=== PATIENT | male | born 1965 | race Caucasian/White ===

== ENCOUNTER 2016-07-23 15:52 | Emergency (ER) | payer OTHER ==
[~2016-07-23 15:52] MED LIST: ANTACID PLUS A355 M1 PO; LORTAB 7.5-5001 TAB PO; MULTI VITAMIN1 EACH PO; NAPROSYN375 MG PO; NAPROXEN PO; NICODERM C1 PATCH .1 TD; NO MEDICATIONS; NO MEDICATIONS PO; PANTOPRAZOLE SO40 MG PO; PHENERGAN PR; PHENERGAN25 MG PO; PRILOSEC20 M1 PO; PROTONIX PO; THIAMINE HCL100 M1 PO; VICODIN 5/1 TAB 5/50 PO; VICODIN 5/500 T1 TAB PO; XANAFLEX; ZANAFLEX PO; ZANAFLEX2 M1 PO; ZANAFLEX2 MG PO; ZANTAC150 MG PO
== END 2016-07-23 15:55 | disposition left against medical advice (07) ==
LOC: CED 15:52
DX: Z53.21 Procedure and treatment not carried out due to patient leaving prior to being seen by health care provider (principal)

== ENCOUNTER 2016-09-13 07:51 | Inpatient (IN) | payer OTHER ==
--- NOTE | ~2016-09-13 | OR ---
Unit #: [id number] #: [id number] Patient: JELANI MARTINEZ [id number] [address] [id number] I MR#: [id number] NAME: JELANI MARTINEZ. ROOM: [facility] Date of Procedure: 09/15/2016 Admission Date: 09/13/2016 Surgeon: Kwesi Larsen M.D. : 1965 Attending Physician: Kwame Flowers M.D. Primary Care Physician: Primary Care Physician No OPERATIVE REPORT PROCEDURE PERFORMED Esophagogastroduodenoscopy with biopsy. INDICATIONS FOR PROCEDURE The patient with persistent epigastric pain, nausea, and vomiting. MEDICATIONS Monitored anesthesia. POSTOPERATIVE FINDINGS 1. Moderate-sized hiatal hernia. 2. Gastritis with erosions. 3. No ulcers. 4. Normal duodenum and distal duodenum. PLAN Continue PPI therapy. The patient is otherwise stable. DESCRIPTION OF PROCEDURE The patient was explained of the procedure, risks, and benefits along with the risks and benefits of anesthesia. He was brought to the endoscopy room. Propofol anesthesia was given. Bite block was placed. The scope was passed down the mouth into the esophagus, stomach, duodenum, and distal duodenum. Findings as described. Biopsy was taken. Gently, I pulled it out of the patient's mouth. He tolerated it well. Dictated by... Lucia Denton/francisco TD: 09/15/2016 20:20 JOB #: [id number] Unit #: [id number] #: [id number] Patient: JELANI MARTINEZ OPERATIVE REPORT Page 1 of 1 X Kwesi Larsen MD X PROCEDURE OPERATIVE NOTE
--- NOTE | ~2016-09-13 | HP ---
Unit #: [id number] #: [id number] Patient: JELANI MARTINEZ [id number] [facility]. [place], [place] [address] [id number] E MR#: [id number] NAME: JELANI MARTINEZ ROOM: Age: 51 Sex: M Admission Date: 09/13/2016 : 1965 Attending Physician: Joshua Templeton M.D. HISTORY AND PHYSICAL REVISED REPORT CHIEF COMPLAINT Nausea, vomiting, and abdominal pain. HPI The patient is a 51-year-old male with past medical history of gastric ulcer, pancreatitis, chronic low back pain, and alcohol abuse who presented to the emergency department for evaluation of the above. The patient state that he was in his usual state of health until the 11 of September when he drank alcohol. He states that since that time, he has had worsening abdominal pain. The pain is in his upper abdomen. He describes it as "pain." There are no exacerbating or alleviating factors. He has had more than 10 bouts of nonbloody emesis within the past 24 hours. He also reports loose stool. He denies any fever. No cough or cold symptoms. No urinary symptoms. In the emergency department, CT of the abdomen and pelvis was done and showed no obstructing calculi. Amylase and lipase are 47 and 34, respectively. White blood cell count 18.4. He was given Zosyn in the emergency department as well as a total of 8 mg of morphine and 8 mg of Zofran. Additionally, he received 1 liter of normal saline bolus. He is being admitted to [facility] for evaluation and further treatment. PAST MEDICAL HISTORY 1. 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 He was seen in consultation by Dr. Larsen. It does not appear that he had endoscopy. 2. History of gastric ulcer. 3. Chronic low back pain. 4. History of pancreatitis. PAST SURGICAL HISTORY 1. EGD. 2. Right ankle surgery. SOCIAL HISTORY The patient smokes 1/2 pack of cigarettes daily. He has a history of heavy alcohol use. History of last drink was on September 11 and consisted of several beers. 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 Unit #: [id number] #: [id number] Patient: JELANI MARTINEZ FAMILY HISTORY Notable for his dad having cirrhosis. ALLERGIES No known allergies. MEDICATIONS Home medications include Phenergan and Protonix. Home medications will need to be reviewed and verified. REVIEW OF SYSTEMS A complete review of systems is negative, except as indicated in the HPI. DIAGNOSTIC STUDIES IMAGING: CT of the abdomen and pelvis shows no obstructing calculi. Right upper quadrant ultrasound is pending at the time of this dictation. LABORATORY: Comprehensive metabolic panel notable for potassium of 3.3, and chloride is 96. Amylase and lipase are 47 and 34, respectively. Complete blood count notable for white blood cell count of 18.4 and hemoglobin and hematocrit 15.8 and 50.1, respectively. Urinalysis notable for trace leukocyte esterase and 2+ ketones. Lactic acid is 1. PHYSICAL EXAMINATION VITAL SIGNS: Temperature is 97.9, pulse 90, respirations 18, blood pressure 167/105, and oxygen saturation is 95% on room air. GENERAL: The patient is a male who is ambulating about the emergency department. HEENT: The head is atraumatic. Mucous membranes are dry. NECK: Supple. Trachea is midline. CARDIOVASCULAR: Regular rate and rhythm. LUNGS: Clear to auscultation bilaterally with no increased work of breathing. ABDOMEN: Soft. He is tender to palpation in the epigastric area. Bowel sounds are present in all four quadrants. EXTREMITIES: Nontender with no pedal edema. NEUROLOGIC: The patient is awake and alert. He follows commands. PSYCH: Mood and affect are normal. The patient is cooperative. SKIN: Skin of examined areas is warm and dry. ASSESSMENT The patient is a 51-year-old male with: 1. Abdominal pain. 2. Hypokalemia. 3. Leukocytosis. The patient received Zosyn in the emergency department. 4. History of gastric ulcer. 5. History of alcohol-induced pancreatitis. 6. Chronic low back pain. 7. Alcohol abuse with last drink being on September 11. 8. Tobacco abuse. PLAN 1. Admit for observation to intermediate level. 2. NPO and will advance to clear liquids as tolerated. 3. P.R.N. morphine. 4. P.R.N. Zofran. 5. Follow up results of right upper quadrant ultrasound. Unit #: [id number] #: [id number] Patient: JELANI MARTINEZ 6. Consult Dr. Larsen regarding abdominal pain. 7. Check EKG and cardiac enzymes. 8. Check potassium/ magnesium protocol. 9. Blood cultures x2. 10. Zosyn IV pending further workup. 11. Stool studies including ova and parasites, C. diff., and culture and sensitivity. 12. Alcohol withdrawal protocol. 13. Urine tox screen. 14. Repeat labs in the morning including amylase and lipase. 15. SCDs for DVT prophylaxis. 16. Protonix. 17. Additional workup and consultants bases on above. Dictated by Lucia Rm TD: 09/13/2016 13:22 JOB #: [id number] HISTORY AND PHYSICAL Page 1 of 1 X Iveth Lara MD X HISTORY AND PHYSICAL
--- NOTE | ~2016-09-13 | EKG ---
PATIENT: JELANI MARTINEZ UNIT #: [id number] Ventricular Rate: 78 BPM Atrial Rate: 78 BPM P-R Interval: 146 ms QRS Duration: 80 ms Q-T Interval: 372 ms QTC Calculation(Bezet): 424 ms P Galva: 77 degrees Calculated R Galva: 57 degrees Calculated T Galva: 62 degrees Diagnosis Line: Normal sinus rhythm with sinus arrhythmia Diagnosis Line: Normal ECG Diagnosis Line: When compared with ECG of 27-JAN-2016 08:49, Diagnosis Line: No significant change was found Diagnosis Line: Confirmed by ALLYSSA MOLINA MD ([id number]) on Diagnosis Line: 09/13/2016 3:10:09 PM INTERPRETING MD: BRODY
--- NOTE | ~2016-09-13 | CO ---
Unit #: [id number] #: [id number] Patient: JELANI MARTINEZ [id number] [place], [place] [address] [id number] I MR#: [id number] NAME: JELANI MARTINEZ. ROOM: 338 Age: 51 Sex: M Admission Date: 09/13/2016 : 1965 Attending Physician: Kwame Flowers M.D. Consultation Date: 09/14/2016 CONSULTATION REPORT REASON FOR CONSULTATION Abdominal pain. HISTORY OF PRESENTING ILLNESS Mr. Martinez is a 51-year-old gentleman, who was admitted yesterday with complaints of abdominal pain, which is mostly in the upper abdomen, going on for about a week or so. He says he has quit drinking for about 8 months, before that, he was a heavy drinker; however, last week he started drinking back and had several drinks. He also has been having swallowing problems for the last several months. He says he has mentioned it to his primary care several times; however, no evaluation was planned. He denies using NSAIDs. He denies any vomiting or hematemesis. He did think his stool was black a few days ago. PAST MEDICAL HISTORY Significant for alcohol related pancreatitis, alcoholism, gastroesophageal reflux disease, history of peptic ulcer disease, also with history of seizures. SOCIAL HISTORY Alcoholism. Smoker of one pack a day. Denies drug abuse. REVIEW OF SYSTEMS Complete 10-point review of systems was done, which was unremarkable other than mentioned above. MEDICATIONS At home included, Protonix and Phenergan, not sure if he was taking it. ALLERGIES None. PHYSICAL EXAMINATION VITAL SIGNS: Stable. Temperature 97.9, pulse 90, respirations 18, blood pressure 150/68. HEENT: Pupils are equal and reactive. Sclerae anicteric. Oral mucosa moist. NECK: No JVD. No lymphadenopathy. CHEST: Clear to auscultation bilaterally. CARDIOVASCULAR: Regular rate and rhythm. No murmurs. ABDOMEN: Soft, nontender, and nondistended. EXTREMITIES: Without clubbing, cyanosis, or edema. NEUROLOGIC: Intact. Unit #: [id number] #: [id number] Patient: JELANI MARTINEZ SKIN: Warm and dry. DIAGNOSTIC STUDIES LABORATORY RESULTS: Normal amylase and lipase. White count of 12.5, normal hemoglobin and hematocrit. Renal function was good. IMAGING STUDIES: CT scan shows no evidence of any acute disease, no evidence of any pancreatitis. Ultrasound was limited, however, unremarkable. ASSESSMENT AND PLAN 1. The patient with upper abdominal pain, could be alcohol related gastritis, cannot rule out recurrent chronic pancreatitis. At this time, we will treat him conservatively. Given his history of peptic ulcer disease, I will plan on doing an upper endoscopy for evaluation. If that is negative, an EUS for pancreatitis maybe consider later as an outpatient. 2. Dysphagia. EGD for evaluation is planned. PPIs to continue. 3. Alcoholism. Advised against drinking strictly. Thank you, Dr. Lara, for this interesting consult. We will follow along. Dictated by... Kwesi Larsen M.D. GARY/francisco TD: 09/14/2016 11:47 JOB #: [id number] CONSULTATION REPORT Page 1 of 1 X Kwesi Larsen MD X CONSULTATION REPORT
--- NOTE | ~2016-09-13 | CT4 ---
[facility] A Service of [facility] RADIOLOGY TEXT RESULTS PATIENT: JELANI MARTINEZ LOCATION: [facility] 338-01 : [birth year] UNIT #: [id number] AGE: [address]: Iveth Lara MD SEX: M ORDER DR: [id number] [facility]. [place], [place] [address] [id number] E MR#: [id number] Acc #: [id number] NAME: JELANI MARTINEZ : 1965 SEX: M STUDY DATE/TIME: 09/13/2016 8:38 UNIT: BRENT ROOM: STUDY DESCRIPTION: CT Abd and Pelv Wo Cont Attending Physician: Joshua Templeton M.D. Ordering Physician: Joshua Templeton M.D. Primary Care Physician: No Primary Care Physician MEDICAL IMAGING REPORT This report is preliminary unless electronic signature is present EXAM CT scan of the abdomen and pelvis without contrast 09/13/2016 HISTORY Nausea, vomiting and abdominal pain beginning 1 day ago. Pain in mid abdomen and epigastric region. Evaluate for obstructing renal calculus. TECHNIQUE Spiral CT was performed through the abdomen and pelvis without oral or intravenous contrast administration using renal stone protocol. This CT exam was performed with one or more of the following radiation dose reduction techniques: Automatic exposure control, adjustment of mA and/or kV according to patient size, and iterative reconstruction. FINDINGS ABDOMEN: There is no obstructing renal or ureteral calculus. The kidneys are normal bilaterally. The visualized liver, spleen, pancreas, gallbladder and biliary tree and adrenal glands are normal. PELVIS FINDINGS: The gut, mesenteric and gail structures are normal. There is no free fluid in the abdomen or pelvis. The lung bases are normal. IMPRESSION No obstructing renal or ureteral calculus. Dictated by... Oscar Leggett M.D. THIS IS AN ELECTRONICALLY VERIFIED REPORT Oscar Leggett M.D. at 09/14/2016 6:25 AM KRT/aa [facility] A Service [facility] RADIOLOGY TEXT RESULTS PATIENT: JELANI MARTINEZ LOCATION: [facility] 338-01 : [birth year] UNIT #: [id number] AGE: [address]: Iveth Lara MD SEX: M ORDER DR: TD: 09/13/2016 13:32 JOB #: [id number] MEDICAL IMAGING REPORT Page 1 of 1 COPY
--- NOTE | ~2016-09-13 | DS ---
Unit #: [id number] #: [id number] Patient: JELANI MARTINEZ [id number] [facility]. [place], [place] [address] [id number] I MR#: [id number] NAME: JELANI MARTINEZ. ROOM: 338 Age: 51 Sex: M Admission Date: 09/13/2016 : 1965 Discharge Date: 09/15/2016 Attending Physician: Kwame Flowers M.D. DISCHARGE SUMMARY DIAGNOSES ON ADMISSION 1. Abdominal pain. 2. History of gastric ulcer. 3. Chronic low back pain. 4. History of pancreatitis. 5. History of alcohol abuse. CONSULTATION Dr. Larsen in GI consultation. LABS AND PROCEDURES 1. Patient has a creatinine of 0.8 today, sodium 136, potassium 3.9, and AST and ALT are within normal limits. Amylase is 7 and lipase is 20. Troponin is negative. WBC 9.1, hemoglobin 14.2, and platelet count is 278,000. Magnesium level 2. Stool culture was negative. Blood culture did not reveal any growth so far. Urine toxicology screen was positive for marijuana and opiates. 2. Abdominal ultrasound was a limited examination due to bowel gas. 3. CT scan of the abdomen and pelvis did not reveal any obstructing renal or ureteral calculus. HOSPITAL COURSE A 51-year-old patient was admitted to [facility] with abdominal pain. Details are as per admission History and Physical. Patient was seen by Dr. Larsen in consultation who is planning to perform an EGD as patient has a history of gastric ulcer in the past. Overall, patient feels better today and stated his abdominal pain has improved. Therefore, we will discharge patient home after EGD. PHYSICAL EXAMINATION GENERAL: Patient is comfortable and is not in any acute distress. VITAL SIGNS: Temperature of 97.5, pulse 93 per minute, respiratory rate 18 per minute, and blood pressure is 131/72. HEENT: No conjunctival congestion. Sclerae are nonicteric. NECK: Supple. Trachea is central. RESPIRATORY: Examination revealed breath sounds equal bilaterally. No wheezes or crackles. HEART: Regular rate and rhythm, S1 and S2. ABDOMEN: Soft and nontender. Bowel sounds are present in all four quadrants. NEUROLOGIC: Strength is 5 over 5 bilaterally. SKIN: Warm and dry. Unit #: [id number] #: [id number] Patient: JELANI MARTINEZ RECOMMENDATIONS ON DISCHARGE 1. Condition is stable. 2. Activity is as tolerated. 3. Patient was advised to call primary care physician or go to the ER if his condition changes. DISCHARGE MEDICATIONS 1. Multivitamin 1 tablet p.o. daily [id number]. 2. Thiamine 100 mg p.o. daily [id number]-[id number]. 3. Folic acid 1 mg p.o. daily dehm-ghm-midbcep. 4. Patient's PPI and other stomach medicines will be as per Dr. Larsen after the endoscopy. FOLLOWUP Patient is advised to follow with primary care physician in one week and have a CBC and BMP done and follow with Dr. Larsen as recommended. Patient is also [facility] The plan was discussed in detail with patient who showed complete understanding. Dictated by... Lucia Forrester/bryan TD: 09/15/2016 15:05 JOB #: [id number] CC: Kwesi Larsen M.D. DISCHARGE SUMMARY Page 1 of 1 X Kwame Flowers MD X DISCHARGE SUMMARY
--- NOTE | ~2016-09-13 | US67 ---
[facility] A Service of [facility] RADIOLOGY TEXT RESULTS PATIENT: JELANI MARTINEZ LOCATION: [facility] 338-01 : [birth year] UNIT #: [id number] AGE: [address]: Iveth Lara MD SEX: M ORDER DR: [id number] [facility]. [place], [place] [address] [id number] E MR#: [id number] Acc #: [id number] NAME: JELANI MARTINEZ : 1965 SEX: M STUDY DATE/TIME: 09/13/2016 13:14 UNIT: [facility] ROOM: STUDY DESCRIPTION: Gallbladder Attending Physician: Joshua Templeton M.D. Ordering Physician: Joshua Templeton M.D. Primary Care Physician: Primary Care Physician No MEDICAL IMAGING REPORT This report is preliminary unless electronic signature is present EXAM Gallbladder ultrasound, 09/13/2016 HISTORY Right upper quadrant abdominal pain and epigastric pain for 2 years. No known injury. FINDINGS The liver is homogeneous in echotexture and demonstrates no cystic or solid mass lesions. The intra and extrahepatic bile ducts are not dilated. The gallbladder is normal with no evidence of cholelithiasis, wall thickening or pericholecystic fluid. The common duct and pancreas are obscured by bowel gas. The visualized portions of the right kidney are normal. IMPRESSION Limited examination as the pancreas and common bile duct are obscured by bowel gas. Otherwise negative right upper quadrant ultrasound. Dictated by... Oscar Leggett M.D. THIS IS AN ELECTRONICALLY VERIFIED REPORT Oscar Leggett M.D. at 09/14/2016 6:29 AM NOHEMY/russ TD: 09/13/2016 15:52 JOB #: [id number] MEDICAL IMAGING REPORT Page 1 of 1 COPY
[2016-09-13 08:33] LABS: BASOPHIL# 0.1 X10e3 (0-0.3); BASOPHIL% 0.3 % (0-2.5); DIFF IND YES; HEMATOCRIT 50.1 % (38.0-50.0); HEMOGLOBIN 16.8 gm/dL (13.0-16.0); LYMPHOCYTE# 2.8 X10e3 (1.0-3.5); LYMPHOCYTE% 15.2 % (17.0-45.0); MEAN CELL VOLUME 90.4 FL (83-96); MEAN CORPUSCULAR HEMOGLOBIN 30.4 PG (28-34); MEAN CORPUSCULAR HGB CONC 33.6 g/dL (30-36); MEAN PLATELET VOLUME 8.6 FL (6.5-11.5); MONOCYTE# 1.5 X10e3 (0-1.0); MONOCYTE% 8.4 % (3.0-12.0); NEUTROPHIL% 76.1 % (40-75); RED BLOOD COUNT 5.54 X10e (3.90-5.60); RED CELL DISTRIBUTION WIDTH 13.5 % (11.0-15.5); WHITE BLOOD COUNT 18.4 X10e3 (4.0-10.5)
[2016-09-13 09:07] LABS: ALBUMIN SERUM 4.6 g/dL (3.5-5.0); BILIRUBIN, DIRECT 0.2 mg/dL (0.0-0.2); BILIRUBIN,INDIRECT 1.4 mg/dL (0.0-0.9); BILIRUBIN,TOTAL 1.6 mg/dL (0.2-2.0); CALCIUM SERUM 9.4 mg/dL (8.4-10.2); POTASSIUM 3.3 mmol/L (3.5-5.1); PROTEIN TOTAL SERUM 7.7 g/dL (6.0-8.3)
[2016-09-13 09:53] LABS: PLATELET ESTIMATE NORMAL (NORMAL); RBC NORMAL YES; VACUOLIZATION SL
[2016-09-13 09:54] LABS: PLATELET COUNT 355 X10e3 (140-420)
[2016-09-13 10:10] LABS: URINE SOURCE CLEAN CATCH
[2016-09-13 10:19] LABS: URINE APPEARANCE CLEAR; URINE BILIRUBIN NEG (NEG); URINE BLOOD NEG (NEG); URINE COLOR YELLOW; URINE GLUCOSE NEG (NEG); URINE KETONE 2+ (NEG); URINE LEUKOCYTE ESTERASE TRACE (NEG); URINE NITRATE NEG (NEG); URINE PH 6.5 (5-8); URINE PROTEIN NEG (NEG); URINE SPECIFIC GRAVITY 1.027 (1.003-1.035)
[2016-09-13 10:21] LABS: URBCS1 AUWI 0-2 /[HPF] (0-2); URINE BACTERIA AUWI NEG (NEGATIVE); URINE SQUAMOUS EPITHELIAL CELL NONE SEEN /[HPF]; UWBCS1 AUWI 0-2 (0-5)
[2016-09-13 10:29] LABS: CULTURE INDICATED? NO
[2016-09-13 14:13] LABS: AMPHETAMINE NEG (NEG); BARBITURATES NEG (NEG); BENZODIAZEPINES NEG (NEG); COCAINE NEG (NEG); MARIJUANA POS (NEG); OPIATES POS (NEG); TRICYCLIC ANTIDEPRESSANTS NEG (NEG); U METHADONE NEG (NEG)
[2016-09-13 15:12] LABS: MAGNESIUM 2.2 mg/dL (1.6-3.0)
[2016-09-13 15:31] LABS: %MB 2.9 % (0.0-4.0); MB 2.2 ng/ml
[2016-09-13] MEDS ORDERED: PHENERGAN25 M1 PO (17:58)
[2016-09-13] MEDS ORDERED: PROTONIX PO (18:01)
[2016-09-13 20:51] LABS: %MB 3.6 % (0.0-4.0); MB 2.7 ng/ml
[2016-09-14 03:09] LABS: BASOPHIL# 0.1 X10e3 (0-0.3); BASOPHIL% 0.5 % (0-2.5); EOSINOPHIL# 0.1 X10e3 (0-0.7); EOSINOPHIL% 0.9 % (0.0-7.0); HEMATOCRIT 43.3 % (38.0-50.0); LYMPHOCYTE# 4.1 X10e3 (1.0-3.5); LYMPHOCYTE% 32.6 % (17.0-45.0); MEAN CELL VOLUME 92.5 FL (83-96); MEAN CORPUSCULAR HEMOGLOBIN 30.7 PG (28-34); MEAN CORPUSCULAR HGB CONC 33.2 g/dL (30-36); MEAN PLATELET VOLUME 8.5 FL (6.5-11.5); MONOCYTE# 1.1 X10e3 (0-1.0); MONOCYTE% 8.7 % (3.0-12.0); NEUTROPHIL# 7.2 X10e3 (1.5-7.1); NEUTROPHIL% 57.3 % (40-75); PLATELET COUNT 290 X10e3 (140-420); RED BLOOD COUNT 4.68 X10e (3.90-5.60); RED CELL DISTRIBUTION WIDTH 13.5 % (11.0-15.5); WHITE BLOOD COUNT 12.5 X10e3 (4.0-10.5)
[2016-09-14 03:11] LABS: DIFF IND NO; HEMOGLOBIN 14.4 gm/dL (13.0-16.0)
[2016-09-14 03:31] LABS: ALBUMIN SERUM 3.4 g/dL (3.5-5.0); BILIRUBIN,TOTAL 0.8 mg/dL (0.2-2.0); BUN/CREATININE RATIO 16.25; CALCIUM SERUM 7.9 mg/dL (8.4-10.2); CREATININE SERUM 0.8 mg/dL (0.6-1.4); GLOM FILT RATE Estimated 104.9 mL/min (>60); MAGNESIUM 2.1 mg/dL (1.6-3.0); POTASSIUM 3.8 mmol/L (3.5-5.1); PROTEIN TOTAL SERUM 5.6 g/dL (6.0-8.3)
[2016-09-14 03:53] LABS: %MB 4.5 % (0.0-4.0); MB 3.1 ng/ml
[2016-09-15 05:36] LABS: HEMATOCRIT 42.3 % (38.0-50.0); HEMOGLOBIN 14.2 gm/dL (13.0-16.0); MEAN CELL VOLUME 91.6 FL (83-96); MEAN CORPUSCULAR HEMOGLOBIN 30.6 PG (28-34); MEAN CORPUSCULAR HGB CONC 33.4 g/dL (30-36); MEAN PLATELET VOLUME 8.1 FL (6.5-11.5); RED BLOOD COUNT 4.62 X10e (3.90-5.60); RED CELL DISTRIBUTION WIDTH 13.3 % (11.0-15.5); WHITE BLOOD COUNT 9.1 X10e3 (4.0-10.5)
[2016-09-15 06:12] LABS: ALBUMIN SERUM 3.4 g/dL (3.5-5.0); BILIRUBIN,TOTAL 0.8 mg/dL (0.2-2.0); BUN/CREATININE RATIO 6.25; CALCIUM SERUM 8.3 mg/dL (8.4-10.2); CREATININE SERUM 0.8 mg/dL (0.6-1.4); GLOM FILT RATE Estimated 104.9 mL/min (>60); POTASSIUM 3.9 mmol/L (3.5-5.1); PROTEIN TOTAL SERUM 5.5 g/dL (6.0-8.3)
[2016-09-15] MEDS ORDERED: VITAMIN B-1100 M1 PO (15:18)
[2016-09-15] MEDS ORDERED: THERAPEUTIC-M1 EAC2 PO (15:18)
[2016-09-15] MEDS ORDERED: FOLIC ACID1 MG PO (15:19)
[2016-09-15] MEDS ORDERED: PROTONIX PO (15:19)
== END 2016-09-15 15:47 | disposition home or self-care (01) | DRG 392 ==
LOC: CED 07:51 → CEDOF 13:15 → C3A PCU 13:15 → CED 17:32 → CEDOF 17:32 → C3A PCU 17:36 → CEDOF 17:36 → C3A PCU 09-14 06:48
PROVIDERS: Emergency Medicine; Family Medicine; Internal Medicine
PROC: 0DB68ZX Excision of Stomach, Via Natural or Artificial Opening Endoscopic, Diagnostic (ICD-10-PCS; principal; 2016-09-15 14:06)
DX: R10.9 Unspecified abdominal pain (principal); R13.10 Dysphagia, unspecified; E87.6 Hypokalemia; D72.829 Elevated white blood cell count, unspecified; F17.210 Nicotine dependence, cigarettes, uncomplicated; M54.5 Low back pain; G89.29 Other chronic pain; K21.9 Gastro-esophageal reflux disease without esophagitis; Z87.11 Personal history of peptic ulcer disease; F10.20 Alcohol dependence, uncomplicated; K29.70 Gastritis, unspecified, without bleeding; K44.9 Diaphragmatic hernia without obstruction or gangrene; Z71.41 Alcohol abuse counseling and surveillance of alcoholic
CPT/HCPCS: 36415; 74176; 76705; 80048; 80053; 80076; 80307; 81003; 82150; 82550; 82553; 83605; 83690; 83735; 84132; 84484; 85025; 85027; 87040; 87045; 87177; 87209; 87427; 87493; 87899; 88305; 88312; 93005; 96361; 96365; 96375; 96376; 99285; C9113; J2250; J2270; J2405; J2543; J3411; J7042